=== PATIENT | female | born 1990 | race Two or more races ===

== ENCOUNTER 2017-01-07 14:46 | Emergency (ER) | payer MEDICAID ==
--- NOTE | ~2017-01-07 | ER ---
PATIENT'S NAME: S[facility]AI [facility] AGE: 26 Y [address] ROOM: [place] [id number] LOCATION: [facility] ADMIT DATE: 01/07/2017 ER/Outpatient Report DISCHARGE DATE: 01/07/2017 FAMILY PHYSICIAN: PHYSICIAN, RAGHAV ATTENDING PHYSICIAN: Anjana Kelsey Time of Arrival: 1446 hours. Time of Evaluation: 1506 hours. IDENTIFICATION: A 26-year-old female. CHIEF COMPLAINT: Abdominal pain. HISTORY OF PRESENT ILLNESS: The patient is a 26-year-old female with severe epigastric pain. History is difficult as she is very tearful and crying and hyperventilating while obtaining the history from her. Onset of pain was 2 days ago, increased in severity today. It is an intermittent pain. She has had nausea and vomiting x4. T-max 99.8. She has diarrhea since she has had her cholecystectomy and that is unchanged from normal. No blood in her stools. No dark, tarry, or black stools. No ill contacts. No chest pain. No cough or shortness of breath. PAST MEDICAL HISTORY: ALLERGIES: NO KNOWN DRUG ALLERGIES. CURRENT MEDICATIONS: 1. Omeprazole. 2. control pills. MEDICAL PROBLEMS: History of gastritis. PRIOR SURGERIES: Cholecystectomy and umbilical hernia repair. SOCIAL HISTORY: The patient lives in [place]. She has no primary care physician. Tobacco use, 1 to 2 cigarettes per month. Alcohol occasional, maybe 2 to 3 times a week. Drug use, denies. PATIENT'S NAME: [facility]IRA [facility] AGE: 26 Y [address] ROOM: [place] [address] LOCATION: [facility] ADMIT DATE: 01/07/2017 ER/Outpatient Report DISCHARGE DATE: 01/07/2017 FAMILY PHYSICIAN: PHYSICIAN, RAGHAV ATTENDING PHYSICIAN: Anjana Kelsey REVIEW OF SYSTEMS: All systems reviewed. Last menstrual period was in August; she said that is normal for her on her control pills. All other systems reviewed and negative other than what is noted in the HPI. She has no dysuria, no increased frequency of urination. PHYSICAL EXAMINATION: VITAL SIGNS: Weight 104 kg, blood pressure 137/63, pulse 91, respirations 18, temperature 98.5, and saturations 99% on room air. GENERAL: A tearful 26-year-old female, hyperventilating, in obvious distress. HEENT: Head: Normocephalic, atraumatic. Eyes: Pupils equal and reactive to light and accommodation. Extraocular movements intact. Nose: Mucosa pink. No lesions. Mouth: No lesions. Pharynx benign. NECK: Supple. No lymphadenopathy. No nuchal rigidity. LUNGS: Clear to auscultation. Breath sounds are equal. No rhonchi, wheezes, or rales. HEART: Regular rate and rhythm. No murmur, rub, or gallop. ABDOMEN: Bowel sounds present. Protuberant abdomen, soft, nondistended. Tender to palpation in the epigastric region. No rebound or guarding. No CVA tenderness. SKIN: [place], warm, and dry. No lesions or rashes noted. NEURO: The patient is alert and oriented x4. Cranial nerves 2 through 12 grossly intact. Motor strength 5/5 throughout. Sensation is intact to light touch. EMERGENCY DEPARTMENT COURSE: An IV was initiated. Was given IV fluids 1 L, Zofran 4 mg IV, and fentanyl 50 mcg IV. Her pain improved down to about 3 or 4. She was given Protonix 40 mg IV and a GI cocktail with complete resolution of her pain. Hemoglobin 14.9, hematocrit 42.1, platelets 289, white count slightly elevated at 13.9 with normal differential. Sodium 141, potassium 3.8, chloride 111, CO2 of 21, BUN 11, creatinine 0.9, blood sugar 85, AST mildly elevated at 47, amylase 91, lipase 199. UA: Specific gravity 1.010, pH 8, 0 to 2 white cells, negative red cells, 2 to 5 epithelial cells, rare bacteria. Urine hCG negative. CT scan abdomen and pelvis with IV contrast: Surgically absent gallbladder. Otherwise, no acute findings on CT per Radiology. IMPRESSION: Gastritis. PLAN: Prilosec 20 mg b.i.d. Follow up with physician of choice in 2 to 3 days. [place] diet. The patient and her significant other understand and agree, and all questions have been answered. PATIENT'S NAME: SINAI [facility] AGE: 26 Y [address] ROOM: [place] [address] LOCATION: ED ADMIT DATE: 01/07/2017 ER/Outpatient Report DISCHARGE DATE: 01/07/2017 FAMILY PHYSICIAN: RAGHAV BERNAL ATTENDING PHYSICIAN: Anjana Kelsey MD OLIVE CATES/miranda /[id number] d: 01/08/17 0936 t: 01/08/17 1513, OUTPATIENT REPORT
[2017-01-07 15:20] LABS: BASOPHIL % 0.3 %; EOSINOPHIL # 0.1 K/uL (0.0-0.5); EOSINOPHIL % 0.4 %; HEMATOCRIT 42.1 % (33.0-46.0); HEMOGLOBIN 14.9 g/dL (11.0-15.0); IMMATURE GRANULOCYTE # 0.1 K/uL (0.0-0.3); IMMATURE GRANULOCYTE % 0.4 %; LYMPHOCYTE # 3.3 K/uL (0.8-4.0); LYMPHOCYTE % 23.8 %; MCH 30.9 pg (27.0-34.0); MCHC 35.4 gm/dL (32.0-36.5); MCV 87.3 fl (83.0-98.0); MONOCYTE # 1.1 K/uL (0.0-1.0); MONOCYTE % 7.9 %; MPV 10.4 fl (9.4-12.4); NEUTROPHIL # (ANC) 9.4 K/uL (1.8-7.8); NEUTROPHIL % 67.2 %; NRBC % 0 /100WBC (0-0.00); PLATELET COUNT 289 K/uL (150-450); RBC 4.82 M/uL (3.50-5.00); RDW-CV 12.9 % (11.9-14.6); WBC 13.9 K/uL (4.0-11.0)
[2017-01-07 15:31] LABS: BILIRUBIN URINE NEGATIVE (NEGATIVE); BLOOD URINE 25 /UL (NEGATIVE); COLOR URINE YELLOW (YELLOW); GLUCOSE URINE NEGATIVE (NEGATIVE); KETONE URINE NEGATIVE (NEGATIVE); LEUKOCYTES URINE 25 /UL (NEGATIVE); NITRITE URINE NEGATIVE (NEGATIVE); PROTEIN URINE NEGATIVE (NEGATIVE); SPEC GRAVITY URINE 1.015 (1.003-1.035); TURBIDITY URINE CLEAR (CLEAR); UROBILINOGEN URINE NORMAL (NORMAL)
[2017-01-07 15:36] LABS: ALBUMIN 3.4 gm/dL (3.5-5.0); ANION GAP 12.8 (10.0-19.0); CALCIUM 8.7 mg/dL (8.5-10.5); CREATININE 0.9 mg/dL (0.5-1.1); POTASSIUM 3.8 mMol/L (3.7-5.1); TOTAL BILIRUBIN 0.6 mg/dL (0.0-1.5); TOTAL PROTEIN 7.4 g/dL (6.0-8.4)
[2017-01-07 15:52] LABS: BACTERIA URINE RARE (NEGATIVE); MUCUS URINE 1+ (NEGATIVE); RBC URINE NEGATIVE #/HPF (NEGATIVE); WBC URINE 0-2 #/HPF (NEGATIVE)
== END 2017-01-07 17:30 | disposition disaster alternative care site (69) ==
LOC: GMED 14:46
PROVIDERS: Family Medicine
DX: K29.70 Gastritis, unspecified, without bleeding (principal); F17.210 Nicotine dependence, cigarettes, uncomplicated; Z79.3 Long term (current) use of hormonal contraceptives; Z79.899 Other long term (current) drug therapy; Z90.49 Acquired absence of other specified parts of digestive tract; Z98.890 Other specified postprocedural states
CPT/HCPCS: C9113; J2405; J3010; J7030